=== PATIENT | male | born 1965 | race Caucasian/White ===

== ENCOUNTER 2022-07-09 18:17 | Emergency (ER) | payer BC ==
[2022-07-09 18:24] VITALS: BMI 35.2
[2022-07-09] MEDS ORDERED: HEPARIN NA (PORCINE) 5,000 UNITS/ML 1ML VIAL IVPUSH ONE ×2 (19:14→19:15)
[2022-07-09] MEDS ORDERED: HEPARIN INFUSION - 25,000 UNITS/500 ML INFUS.BAG IVPB SCH (19:15)
[2022-07-09] MEDS ORDERED: HEPARIN NA (PORCINE) 5,000 UNITS/ML 1ML VIAL IVPUSH PRN ×2 (19:15)
[2022-07-09] MEDS ORDERED: HEPARIN NA (PORCINE) 5,000 UNITS/ML 1ML VIAL ONE (19:20)
[2022-07-09] MEDS ORDERED: HEPARIN INFUSION - 25,000 UNITS/500 ML INFUS.BAG IVPB ONE (19:20)
[2022-07-09 19:30] LABS: BASO % 0.6 % (0-2.0); EOS % 1.8 % (0-4.5); HEMATOCRIT 51.9 % (35.4-49); HEMOGLOBIN 16.8 GM/dL (11.7-16.9); LYMPH % 19.9 % (8-40); MCH 28.3 pg (25.7-33.7); MCHC 32.4 g/dl (32.0-35.9); MEAN CELL VOLUME 87.5 fl (80-96); MEAN PLT VOLUME 8.3 fl (7.5-11.1); MONO % 7.2 % (3.8-10.2); NEUT % 70.5 % (42.8-82.8); PLATELET COUNT 304 10^3/uL (134-434); RBC 5.93 M/mm3 (4.00-5.60); RDW 16.8 % (11.9-15.9); WHITE BLOOD COUNT 12.5 K/mm3 (4.0-10.0)
[2022-07-09 19:34] LABS: ALBUMIN 3.6 g/dl (3.4-5.0); CALCIUM 9.2 mg/dL (8.5-10.1)
[2022-07-09 19:35] LABS: BLOOD UREA NITROGEN 13.6 mg/dL (7-18)
[2022-07-09 19:38] LABS: CREATININE 1.1 mg/dL (0.55-1.3)
[2022-07-09 19:39] LABS: BILIRUBIN,TOTAL 0.9 mg/dL (0.2-1); TOT PROT 7.7 g/dl (6.4-8.2)
[2022-07-09 19:46] LABS: VENOUS BASE EXCESS -1.9 mmol/L (-2-2); VENOUS PCO2 41.6 mmHg (38-52); VENOUS PH 7.367 (7.310-7.410)
[2022-07-09 20:13] LABS: INR 1.11 (0.83-1.09); PROTHROMBIN TIME (PATIENT) 12.8 SEC (9.7-13.0)
[2022-07-09 20:16] LABS: ACTIVATED PTT 32.2 SECONDS (25.2-36.5)
[2022-07-09 22:54] VITALS: TEMP 98.3
[2022-07-10 03:01] VITALS: BP 153/95; PULSE 86; RESP 24
== END 2022-07-10 02:45 | disposition short-term general hospital (02) ==
LOC: JER 18:17
PROC: 3E033GC Introduction of Other Therapeutic Substance into Peripheral Vein, Percutaneous Approach (ICD-10-PCS; principal; 2022-07-09)
DX: I26.99 Other pulmonary embolism without acute cor pulmonale (principal)
CPT/HCPCS: 0241U-QW; 36415; 71045-TC-FY; 71275-TC; 80053; 82803; 83880; 84484; 85025; 85379; 85610; 85730; 93005; 93010; 99285-25; J1644; Q9967